=== PATIENT | male | born 1950 | race Hispanic/Latino ===

== ENCOUNTER 2017-07-19 06:14 | Inpatient (IN) | payer MEDICARE, OTHER ==
--- NOTE | 2017-07-19 06:50 | Emergency Department Report ---
ED Chest Pain HPI - General Chief Complaint: Chest Pain Stated Complaint: CHEST PAIN Time Seen by Provider: 07/19/17 06:49 Source: patient, EMS (ems notes not available at time of chart dictation), RN notes reviewed Mode of arrival: Stretcher Limitations: No Limitations - History of Present Illness Initial Comments: This is a 67-year-old male who was previously unknown to this provider, he reports a past medical history of hypertension, reports a family history of heart disease, reports that his primary care doctor is Dr. Chris. The patient is brought to the hospital by EMS with multiple complaints. Patient reports feeling in his usual state of health, up until 1:30 in the morning. He then describes a gradual onset of epigastric pressure, chest pressure, nausea, dizziness, malaise and discomfort. He also describes abdominal cramping, and profuse diarrhea. His pain does not radiate anywhere, it has no exacerbating or relieving factors, no pulmonary embolus or DVT risk factors, no hematemesis or bright red blood per rectum, EMS gave patient aspirin in the field, otherwise patient hasn't had aspirin in the past 7 days, no cocaine use, positive family history of cardiac disease, no stress test within the past 20 years. MD Complaint: chest pain -: Gradual Onset: during rest Pain Location: substernal, epigastric Pain Radiation: none Severity: moderate Quality: aching Consistency: intermittent Improves With: medication-other (patient reports symptoms improved with IV contrast) re: nausea, vomting Aspirin use within the Past 7 Days: (1) Yes - Related Data On Oral Contraceptives: No Home Medications Medication Instructions Recorded Confirmed Last Taken Albuterol Sulfate 1.25 mg IH PRN PRN 07/19/17 07/19/17 Unknown Albuterol Sulfate [Ventolin HFA] 2 puff IH Q4H PRN 07/19/17 07/19/17 Unknown Amlodipine Besylate [Norvasc] 5 mg PO QDAY 07/19/17 07/19/17 Unknown Esomeprazole Magnesium [Nexium] 20 mg PO QDAY 07/19/17 07/19/17 Unknown Ipratropium [Atrovent] 0.5 mg IH Q4HR PRN 07/19/17 07/19/17 Unknown Montelukast [Singulair] 10 mg PO QPM 07/19/17 07/19/17 Unknown Allergies Allergy/AdvReac Type Severity Reaction Status Date / Time levofloxacin [From Levaquin] Allergy Unknown Verified 07/19/17 06:33 Heart Score - HEART Score History: Slightly suspicious EKG: Non-specific Age: > 65 Risk factors: 1-2 risk factors Troponin: < normal limit HEART Score: 4 - Critical Actions Critical Actions: 4-6 pts:12-16.6% risk of adverse cardiac event. Should be admitted ED Review of Systems ROS: Stated complaint: CHEST PAIN Other details as noted in HPI Constitutional: denies: fever Eyes: denies: vision change ENT: denies: epistaxis Respiratory: denies: cough Cardiovascular: chest pain Gastrointestinal: abdominal pain, diarrhea Genitourinary: denies: dysuria Musculoskeletal: arthralgia Skin: denies: lesions Neurological: weakness Psychiatric: anxiety ED Past Medical Hx - Past Medical History Previous Medical History?: Yes Hx Hypertension: Yes - Surgical History Past Surgical History?: Yes Hx Cholecystectomy: Yes - Social History Smoking Status: Never Smoker Substance Use Type: Alcohol - Medications Home Medications: Home Medications Medication Instructions Recorded Confirmed Last Taken Type Albuterol Sulfate 1.25 mg IH PRN PRN 07/19/17 07/19/17 Unknown History Albuterol Sulfate [Ventolin HFA] 2 puff IH Q4H PRN 07/19/17 07/19/17 Unknown History Amlodipine Besylate [Norvasc] 5 mg PO QDAY 07/19/17 07/19/17 Unknown History Esomeprazole Magnesium [Nexium] 20 mg PO QDAY 07/19/17 07/19/17 Unknown History Ipratropium [Atrovent] 0.5 mg IH Q4HR PRN 07/19/17 07/19/17 Unknown History Montelukast [Singulair] 10 mg PO QPM 07/19/17 07/19/17 Unknown History ED Physical Exam - General Limitations: No Limitations General appearance: alert, in no apparent distress - Head Head exam: Present: atraumatic, normocephalic - Eye Eye exam: Present: normal appearance, EOMI. Absent: nystagmus - ENT ENT exam: Present: normal exam, normal orophraynx, mucous membranes moist, normal external ear exam - Neck Neck exam: Present: normal inspection, full ROM - Respiratory Respiratory exam: Present: normal lung sounds bilaterally. Absent: respiratory distress - Cardiovascular Cardiovascular Exam: Present: regular rate, normal rhythm, normal heart sounds. Absent: systolic murmur, diastolic murmur, rubs, gallop - GI/Abdominal GI/Abdominal exam: Present: soft, tenderness, normal bowel sounds, other (there is epigastric tenderness). Absent: distended, guarding, rebound, rigid, pulsatile mass - Rectal Rectal exam: Present: deferred - Extremities Exam Extremities exam: Present: normal inspection, full ROM, normal capillary refill. Absent: pedal edema, joint swelling, calf tenderness - Back Exam Back exam: Present: normal inspection, full ROM. Absent: tenderness, CVA tenderness (R), CVA tenderness (L), muscle spasm, paraspinal tenderness, vertebral tenderness - Neurological Exam Neurological exam: Present: alert, oriented X3, CN II-XII intact, normal gait, other (Extraocular movements intact. Tongue midline. No facial droop. Facial sensation intact to light touch in the V1, V2, V3 distribution bilaterally. 5 and 5 strength in 4 extremities.. Sensation is intact to light touch in 4 extremities.). Absent: motor sensory deficit - Psychiatric Psychiatric exam: Present: anxious - Skin Skin exam: Present: warm, dry, intact, normal color. Absent: rash ED Course Vital Signs 07/19/17 07/19/17 07/19/17 04:30 06:24 06:29 Temperature 97.6 F Pulse Rate 82 73 Respiratory 15 15 18 Rate Blood Pressure 140/86 O2 Sat by Pulse 74 L 97 Oximetry 07/19/17 07/19/17 07/19/17 06:30 06:45 06:53 Temperature Pulse Rate 93 H 85 Respiratory 17 17 18 Rate Blood Pressure 140/86 O2 Sat by Pulse 99 100 99 Oximetry 07/19/17 07/19/17 07/19/17 07:00 07:43 07:45 Temperature Pulse Rate 91 H 108 H Respiratory 16 15 Rate Blood Pressure 155/100 155/100 149/89 O2 Sat by Pulse 99 98 98 Oximetry 07/19/17 07/19/17 07/19/17 08:00 08:04 08:15 Temperature Pulse Rate 106 H 114 H Respiratory 10 L 18 14 Rate Blood Pressure 161/92 171/96 O2 Sat by Pulse 98 98 Oximetry 07/19/17 07/19/17 07/19/17 08:30 08:34 08:45 Temperature Pulse Rate 105 H 100 H Respiratory 18 18 20 Rate Blood Pressure 162/97 175/107 O2 Sat by Pulse 98 Oximetry 07/19/17 07/19/17 07/19/17 09:00 09:15 09:30 Temperature Pulse Rate 91 H 97 H 94 H Respiratory 14 22 16 Rate Blood Pressure 170/103 150/96 153/96 O2 Sat by Pulse 99 98 99 Oximetry 07/19/17 07/19/17 07/19/17 09:45 09:59 10:00 Temperature Pulse Rate 98 H 78 88 Respiratory 13 19 Rate Blood Pressure 164/98 150/96 178/101 O2 Sat by Pulse 98 100 Oximetry 07/19/17 07/19/17 10:01 10:15 Temperature Pulse Rate 78 88 Respiratory 13 Rate Blood Pressure 150/96 180/99 O2 Sat by Pulse 99 Oximetry KARTHIK score - Karthik Score Age > 65: (1) Yes Aspirin use within the Past 7 Days: (1) Yes 3 or more CAD Risk Factors: (0) No 2 or more Angina events in past 24 hrs: (0) No Known CAD with more than 50% Stenosis: (0) No Elevated Cardiac Markers: (0) No ST Deviation Greater than 0.5mm: (0) No KARTHIK Score: 2 ED Medical Decision Making - Lab Data Result diagrams: 07/19/17 08:50 07/19/17 08:50 Vital Signs 07/19/17 07/19/17 07/19/17 04:30 06:24 06:29 Temperature 97.6 F Pulse Rate 82 73 Respiratory 15 15 18 Rate Blood Pressure 140/86 O2 Sat by Pulse 74 L 97 Oximetry 07/19/17 07/19/17 07/19/17 06:30 06:45 06:53 Temperature Pulse Rate 93 H 85 Respiratory 17 17 18 Rate Blood Pressure 140/86 O2 Sat by Pulse 99 100 99 Oximetry 07/19/17 07/19/17 07/19/17 07:00 07:43 07:45 Temperature Pulse Rate 91 H 108 H Respiratory 16 15 Rate Blood Pressure 155/100 155/100 149/89 O2 Sat by Pulse 99 98 98 Oximetry 07/19/17 07/19/17 08:00 08:04 Temperature Pulse Rate 106 H Respiratory 10 L 18 Rate Blood Pressure 161/92 O2 Sat by Pulse 98 Oximetry Lab Results 07/19/17 07/19/17 Range/Units 06:40 06:40 WBC 17.0 H (4.5-11.0) K/mm3 RBC 5.14 H (3.65-5.03) M/mm3 Hgb 17.6 H (11.8-15.2) gm/dl Hct 50.1 H (35.5-45.6) % MCV 98 H (84-94) fl MCH 34 H (28-32) pg MCHC 35 H (32-34) % RDW 12.7 L (13.2-15.2) % Plt Count 255 (140-440) K/mm3 Seg Neutrophils % Manufacturing Development Engineer Sodium 135 L (137-145) mmol/L Potassium 4.6 (3.6-5.0) mmol/L Chloride 96.1 L (98-107) mmol/L Carbon Dioxide 20 L (22-30) mmol/L Anion Gap 24 mmol/L BUN 20 (9-20) mg/dL Creatinine 0.8 (0.8-1.5) mg/dL Estimated GFR > 60 ml/min BUN/Creatinine Ratio 25 % Glucose 190 H (75-100) mg/dL Calcium 9.7 (8.4-10.2) mg/dL Troponin T < 0.010 (0.00-0.029) ng/mL - EKG Data -: EKG Interpreted by Me EKG shows normal: sinus rhythm Rate: normal - EKG Data When compared to previous EKG there are: previous EKG unavailable 07/19/17 08:46 Normal sinus, 81 bpm, normal axis, motion artifact, QTC prolonged, Q waves noted in the inferior leads, abnormal EKG, not morphologically consistent with ST elevation myocardial infarction - Radiology Data Radiology results: report reviewed, image reviewed interpreted by me: X-ray the chest, and interpreted by myself and radiology: No acute disease [facility] [address] [place] [address] Cat Scan Report Signed Patient: RUBIO AVALOS MR#: [id number] : 1950 Acct:[id number] Age/Sex: 67 / M ADM Date: 07/19/17 Loc: ED Attending Dr: Ordering Physician: SLADE HUGHES MD Date of Service: 07/19/17 Procedure(s): CT abdomen pelvis w con Accession Number(s): [id number] cc: SLADE HUGHES MD FINAL REPORT PROCEDURE: CT ABDOMEN PELVIS W CON TECHNIQUE: Computerized axial tomography of the abdomen and pelvis was performed after the IV injection of iodinated nonionic contrast. HISTORY: abd pain COMPARISON: No prior studies are available for comparison. FINDINGS: Visualized lower thorax: No significant abnormality. Liver: Normal size and attenuation. Spleen: Normal size and attenuation. Gallbladder and biliary system: There has been a cholecystectomy.. Pancreas: Normal. Adrenals: Normal. Kidneys: There is a 2 centimeters cyst in the midpole of the right kidney. There are no kidney stones. There is no hydronephrosis.. GI tract: The stomach is distended with fluid. There are slightly distended loops of small bowel. There is no specific evidence of obstruction or enteritis. There are diverticula of the colon. There is no diverticulitis or colitis. The appendix is not identified.. Lymph nodes and mesentery: Normal. Vasculature: Normal. Bladder: Normal. Reproductive organs: Normal. Peritoneum: There is no ascites, free air, abscess or adenopathy.. Musculoskeletal structures: No significant abnormality. Other: There is a left inguinal hernia containing fat only.. IMPRESSION: There has been a cholecystectomy.. There is a 2 centimeters cyst in the midpole of the right kidney. There are no kidney stones. There is no hydronephrosis.. The stomach is distended with fluid. There are slightly distended loops of small bowel. There is no specific evidence of obstruction or enteritis. There are diverticula of the colon. There is no diverticulitis or colitis. The appendix is not identified.. There is no ascites, free air, abscess or adenopathy.. Transcribed By: CO Dictated By: BRIGITTE CURTIS MD Electronically Authenticated By: BRIGITTE CURTIS MD Signed Date/Time: 07/19/17 3232 - Medical Decision Making Differential diagnosis, including but not limited to: GERD, gastritis, reflux, hiatal hernia, ileus, acute cardiac syndrome, pneumonia, costochondritis Assessment and plan: 67-year-old male with a few cardiac risk factors, elevated heart score, with atypical chest pain, abnormal EKG, and nonspecific abdominal symptoms. [place] improved after Synthroid therapy and IV contrast, EKG abnormal, CT scan of the abdomen and pelvis did not demonstrate any condition that would require emergent surgical or GI consultation, patient will be admitted for acute coronary syndrome risk stratification given a aforementioned findings, case presented to the Hospital physician, Dr. Robledo, who accepted the patient to the medical service. No pulmonary most or DVT risk factors, low risk by well's criteria. Initial O2 sat documented was 74%, this is most likely an error, because for hours afterwards, patient's had no episodes of hypoxia. Critical care attestation.: If time is entered above; I have spent that time in minutes in the direct care of this critically ill patient, excluding procedure time. ED Disposition Clinical Impression: Chest pain, Epigastric abdominal pain Disposition: OP ADMIT IP TO THIS HOSP Is pt being admited?: Yes Does the pt Need Aspirin: No Condition: Stable
[2017-07-19 06:57] LABS: Hematocrit 50.1 % (35.5-45.6); Hemoglobin 17.6 gm/dl (11.8-15.2); Mean Corpuscular HGB Conc 35 % (32-34); Mean Corpuscular Hemoglobin 34 pg (28-32); Mean Corpuscular Volume 98 fl (84-94); Platelet Count 255 K/mm3 (140-440); Red Blood Count 5.14 M/mm3 (3.65-5.03); Red Cell Distribution Width 12.7 % (13.2-15.2)
[2017-07-19] MEDS ORDERED: SUBLIMAZE IV ONE (06:57)
[2017-07-19] MEDS ORDERED: BENTYL PO ONE (06:57)
[2017-07-19] MEDS ORDERED: NITROSTAT SL PRN (06:57)
[2017-07-19] MEDS ORDERED: PEPCID IV ONE (06:57)
[2017-07-19] MEDS ORDERED: ZOFRAN IV ONE (06:57)
[2017-07-19] MEDS ORDERED: NACL 0.9% 500 ML 500 ML IV ONE (06:58)
[2017-07-19] MEDS ORDERED: NACL ONE (07:04)
[2017-07-19 07:21] LABS: Anion Gap 24 mmol/L; BUN/Creatinine Ratio 25; Blood Urea Nitrogen 20 mg/dL (9-20); Calcium 9.7 mg/dL (8.4-10.2); Carbon Dioxide 20 mmol/L (22-30); Chloride 96.1 mmol/L (98-107); Glucose 190 mg/dL (75-100); Potassium 4.6 mmol/L (3.6-5.0); Sodium 135 mmol/L (137-145)
--- NOTE | 2017-07-19 07:52 | Cat Scan Report ---
FINAL REPORT PROCEDURE: CT ABDOMEN PELVIS W CON TECHNIQUE: Computerized axial tomography of the abdomen and pelvis was performed after the IV injection of iodinated nonionic contrast. HISTORY: abd pain COMPARISON: No prior studies are available for comparison. FINDINGS: Visualized lower thorax: No significant abnormality. Liver: Normal size and attenuation. Spleen: Normal size and attenuation. Gallbladder and biliary system: There has been a cholecystectomy.. Pancreas: Normal. Adrenals: Normal. Kidneys: There is a 2 centimeters cyst in the midpole of the right kidney. There are no kidney stones. There is no hydronephrosis.. GI tract: The stomach is distended with fluid. There are slightly distended loops of small bowel. There is no specific evidence of obstruction or enteritis. There are diverticula of the colon. There is no diverticulitis or colitis. The appendix is not identified.. Lymph nodes and mesentery: Normal. Vasculature: Normal. Bladder: Normal. Reproductive organs: Normal. Peritoneum: There is no ascites, free air, abscess or adenopathy.. Musculoskeletal structures: No significant abnormality. Other: There is a left inguinal hernia containing fat only.. IMPRESSION: There has been a cholecystectomy.. There is a 2 centimeters cyst in the midpole of the right kidney. There are no kidney stones. There is no hydronephrosis.. The stomach is distended with fluid. There are slightly distended loops of small bowel. There is no specific evidence of obstruction or enteritis. There are diverticula of the colon. There is no diverticulitis or colitis. The appendix is not identified.. There is no ascites, free air, abscess or adenopathy..
[2017-07-19] MEDS ORDERED: MORPHINE IV PRN (08:31)
[2017-07-19] MEDS ORDERED: NACL 0.9% 1000 ML IV ONE (08:31)
--- NOTE | 2017-07-19 08:42 | XRay Report ---
FINAL REPORT EXAM: XR CHEST ROUTINE 2V HISTORY: cp TECHNIQUE: PA and lateral chest radiographs PRIORS: CT abdomen and pelvis of the same date FINDINGS: No mediastinal shift. Cardiac silhouette is not enlarged. No pneumothorax, effusion, or focal pulmonary opacity. No acute skeletal finding. IMPRESSION: No focal pulmonary opacity.
[2017-07-19 09:19] LABS: Anion Gap 18 mmol/L; BUN/Creatinine Ratio 26; Blood Urea Nitrogen 21 mg/dL (9-20); Carbon Dioxide 25 mmol/L (22-30); Chloride 97.6 mmol/L (98-107); Glucose 129 mg/dL (75-100); Sodium 137 mmol/L (137-145)
[2017-07-19] MEDS ORDERED: COREG ONE (09:29)
[2017-07-19 09:31] LABS: Hemoglobin 17.3 gm/dl (11.8-15.2); Mean Corpuscular HGB Conc 35 % (32-34); Mean Corpuscular Hemoglobin 34 pg (28-32); Mean Corpuscular Volume 98 fl (84-94); Platelet Count 255 K/mm3 (140-440); Red Blood Count 5.09 M/mm3 (3.65-5.03); Red Cell Distribution Width 12.7 % (13.2-15.2); White Blood Count 16.8 K/mm3 (4.5-11.0)
--- NOTE | 2017-07-19 09:45 | Consultation ---
History of Present Illness Consult date: 07/19/17 Consult reason: chest pain History of present illness: 67 year old male presenting with chest tightness that started at 130 am this morning following anepisode of diarrhea, nausea, dizziness and flushing feeling. Patient used to follow with Dr Logan in the past and had 2 stress tests and a heart cath in the last 15-16 years that he describes as being normal. PMHX is pertinent for hypertension. Patient denies smoking or DM. Past History Past Medical History: hypertension, other (hiatal hernia) Past Surgical History: cholecystectomy Social history: no significant social history Family history: hypertension Medications and Allergies Allergies Allergy/AdvReac Type Severity Reaction Status Date / Time levofloxacin [From Levaquin] Allergy Unknown Verified 07/19/17 06:33 Active Meds: Active Medications Albuterol (Proventil) 2.5 mg IH Q4HRT PRN PRN Reason: Shortness Of Breath Albuterol/Ipratropium (Duoneb *Not For Prn Use*) 1 ampul IH QIDRT SANTINO Amlodipine Besylate (Norvasc) 2.5 mg PO ONCE ONE Stop: 07/19/17 10:01 Atorvastatin Calcium (Lipitor) 40 mg PO QHS SANTINO Carvedilol (Coreg) 3.125 mg PO ONCE ONE Stop: 07/19/17 10:01 Metronidazole (Flagyl) 500 mg PO Q8HR SANTINO Morphine Sulfate (Morphine) 2 mg IV Q5MIN PRN PRN Reason: Chest Pain Nitroglycerin (Nitrostat) 0.4 mg SL .Q5MIN PRN PRN Reason: Chest Pain Sodium Chloride (Sodium Chloride Flush Syringe 10 Ml) 10 ml IV PRN PRN PRN Reason: LINE FLUSH Review of Systems All systems: negative Physical Examination Vital Signs Resp Pulse Ox 15 74 L 07/19/17 04:30 07/19/17 04:30 General appearance: no acute distress HEENT: Positive: PERRL Neck: Positive: neck supple Cardiac: Positive: Reg Rate and Rhythm Lungs: Positive: Normal Exam Neuro: Positive: Grossly Intact Abdomen: Positive: Soft Extremities: Present: normal Results 07/19/17 06:40 07/19/17 08:50 Lipids 07/19/17 Range/Units 08:50 Cholesterol 196 (50-199) mg/dL HDL Cholesterol 51 (40-59) mg/dL Cholesterol/HDL Ratio 3.84 % CBC 07/19/17 Range/Units 06:40 WBC 17.0 H (4.5-11.0) K/mm3 RBC 5.14 H (3.65-5.03) M/mm3 Hgb 17.6 H (11.8-15.2) gm/dl Hct 50.1 H (35.5-45.6) % Plt Count 255 (140-440) K/mm3 Comprehensive Metabolic Panel 07/19/17 07/19/17 Range/Units 06:40 08:50 Sodium 135 L 137 (137-145) mmol/L Potassium 4.6 4.0 (3.6-5.0) mmol/L Chloride 96.1 L 97.6 L (98-107) mmol/L Carbon Dioxide 20 L 25 (22-30) mmol/L BUN 20 21 H (9-20) mg/dL Creatinine 0.8 0.8 (0.8-1.5) mg/dL Glucose 190 H 129 H (75-100) mg/dL Calcium 9.7 9.0 (8.4-10.2) mg/dL - EKG Interpretation EKG: sinus rhythm EKG interpretations - Telemetry EKG Rhythm: Sinus Rhythm Assessment and Plan Chest tightness/epigastric pain History of hiatal hernia Two sets of troponin are negative so far ECG on admission is showing no ischemic changes CT abdomen is showing distended loop of bowels and stomach - no obstruction Leukocytosis Polycythemia Elevated lactic acid History of asthma on inhalers and monteleukast at home Systemic Hypertension on amlodipine Recommendations: Repeat another 12 lead ECG showing no ischemic changes Start asa 325 mg po daily IV hydration Agree with empiric antibiotic coverage Echocardiogram Follow troponin, lactic acid and WBC trends Lexiscan prior to discharge (Symptoms so far are not typical for angina)
[2017-07-19] MEDS ORDERED: COREG PO ONE (10:00)
[2017-07-19] MEDS: FLAGYL PO SCH ×2 (10:00→18:22)
[2017-07-19] MEDS ORDERED: PROVENTIL IH PRN (10:00)
[2017-07-19] MEDS ORDERED: SODIUM CHLORIDE FLUSH SYRINGE 10 ML IV PRN (10:00)
[2017-07-19] MEDS ORDERED: NORVASC PO ONE (10:00)
[2017-07-19 11:07] LABS: Basophils % (Manual) 0 % (0.0-1.8); Blastocytes % (Manual) 0 %; Eosinophils % (Manual) 0 % (0.0-4.3)
[2017-07-19 11:08] LABS: Anisocytosis 1+; Diff Status Complete; Platelet Estimate Consistent w Auto
[2017-07-19] MEDS: ECOTRIN PO SCH (11:11)
[2017-07-19 11:40] LABS: Basophils % (Manual) 0 % (0.0-1.8); Blastocytes % (Manual) 0 %; Eosinophils % (Manual) 0 % (0.0-4.3)
[2017-07-19 11:41] LABS: Anisocytosis 1+; Diff Status Complete; Platelet Estimate Consistent w Auto
[2017-07-19] MEDS: DUONEB *Not for PRN Use IH SCH ×2 (12:10→16:37)
--- NOTE | 2017-07-19 13:08 | History and Physical Report ---
<MAGO MCNAMARA - Last Filed: 07/19/17 13:40> History of Present Illness Date of examination: 07/19/17 Date of admission: 07/19/17 09:40 Patient is a 67 year old male with history of Hypertension, Asthma and S/P Cholecystectomy who presents to the ER with complaints of Nausea, diarrhea and subsequent chest pain/pressure. Patient stated that symptoms began about 1 am, a few hours after having left overs for dinner. Patient describe that midsternal chest pressure began after having a few episodes of diarrhea. Patient stated the stools was watery in consistency with no blood or any other abnormalities. Patient stated that prior to last night, condition was benign and no acute illnesses. Past History Past Medical History: hypertension, other (hiatal hernia) Past Surgical History: cholecystectomy Social history: no significant social history, Family history: cancer (Mom had Colon Ca), hypertension, other (Dad pass with [place] ) Medications and Allergies Allergies Allergy/AdvReac Type Severity Reaction Status Date / Time levofloxacin [From Levaquin] Allergy Unknown Verified 07/19/17 06:33 Home Medications Medication Instructions Recorded Confirmed Last Taken Type Albuterol Sulfate 1.25 mg IH PRN PRN 07/19/17 07/19/17 Unknown History Albuterol Sulfate [Ventolin HFA] 2 puff IH Q4H PRN 07/19/17 07/19/17 Unknown History Amlodipine Besylate [Norvasc] 5 mg PO QDAY 07/19/17 07/19/17 Unknown History Esomeprazole Magnesium [Nexium] 20 mg PO QDAY 07/19/17 07/19/17 Unknown History Ipratropium [Atrovent] 0.5 mg IH Q4HR PRN 07/19/17 07/19/17 Unknown History Montelukast [Singulair] 10 mg PO QPM 07/19/17 07/19/17 Unknown History Active Meds: Active Medications Albuterol (Proventil) 2.5 mg IH Q4HRT PRN PRN Reason: Shortness Of Breath Albuterol/Ipratropium (Duoneb *Not For Prn Use*) 1 ampul IH QIDRT ON LICENSE OF [facility] Last Admin: 07/19/17 12:10 Dose: 1 ampul Aspirin (Ecotrin) 325 mg PO QDAY ON LICENSE OF [facility] Last Admin: 07/19/17 11:11 Dose: Not Given Atorvastatin Calcium (Lipitor) 40 mg PO QHS [facility] Metronidazole (Flagyl) 500 mg PO Q8H ON LICENSE OF [facility] Last Admin: 07/19/17 10:00 Dose: 500 mg Morphine Sulfate (Morphine) 2 mg IV Q5MIN PRN PRN Reason: Chest Pain Nitroglycerin (Nitrostat) 0.4 mg SL .Q5MIN PRN PRN Reason: Chest Pain Sodium Chloride (Sodium Chloride Flush Syringe 10 Ml) 10 ml IV PRN PRN PRN Reason: LINE FLUSH Review of Systems All systems: negative Cardiovascular: high blood pressure (Current B;ood Pressure 171/86), no chest pain (No Chest pain or pressure at present time), no shortness of breath Respiratory: no shortness of breath, no dyspnea on exertion Gastrointestinal: nausea (Currently no nausea, S/P Zofran ), diarrhea ( Currently no episode of diarrhea), no abdominal pain, no constipation, no coffee ground emesis, no melena, no heartburn Genitourinary Male: no hematuria, no incontinence, no erectile dysfunction, no urinary retention, no kidney stones Rectal: no pain, no incontinence, no bleeding, no itching, no hemorrhoids Musculoskeletal: no low back pain, no gait dysfunction Integumentary: no rash, no redness, no sores, no wounds, no blisters Neurological: no head injury, no paralysis, no numbness, no tingling, no seizures, no headaches, no migraines Psychiatric: no anxiety, no sleep disturbances, no insomnia, no depression Endocrine: no excessive thirst, no polydipsia, no polyuria, no nocturia Hematologic/Lymphatic: no easy bruising, no easy bleeding Allergic/Immunologic: no urticaria, no allergic rhinitis, no wheezing Exam - Constitutional Vitals: Temp Pulse Resp BP Pulse Ox 97.6 F 113 H 20 180/99 99 07/19/17 06:29 07/19/17 12:15 07/19/17 12:15 07/19/17 10:15 07/19/17 10:15 General appearance: Present: no acute distress, well-nourished - EENT Eyes: Present: PERRL ENT: hearing intact, clear oral mucosa, dentition normal - Neck Neck: Present: supple, normal ROM. Absent: rigidity, enlarged thyroid, masses or JVD, cervical LAD, carotid bruits - Respiratory Respiratory effort: normal Respiratory: bilateral: CTA (No shortness of breath, Rhonchi or rales) - Cardiovascular Rhythm: regular Heart Sounds: Present: S1 & S2. Absent: gallop, systolic murmur, diastolic murmur - Extremities Extremities: no ischemia, pulses intact Peripheral Pulses: within normal limits - Abdominal General gastrointestinal: Present: soft, non-tender, non-distended, other ( Hyperactive bowel sounds) - Integumentary Integumentary: Present: warm, dry, normal turgor. Absent: erythema, jaundice, rash, clammy, decreased turgor - Musculoskeletal Musculoskeletal: strength equal bilaterally - Psychiatric Psychiatric: appropriate mood/affect Results - Labs CBC & Chem 7: 07/19/17 08:50 07/19/17 08:50 Labs: Laboratory Last Values WBC 16.8 K/mm3 (4.5-11.0) H 07/19/17 08:50 RBC 5.09 M/mm3 (3.65-5.03) H 07/19/17 08:50 Hgb 17.3 gm/dl (11.8-15.2) H 07/19/17 08:50 Hct 50.0 % (35.5-45.6) H 07/19/17 08:50 MCV 98 fl (84-94) H 07/19/17 08:50 MCH 34 pg (28-32) H 07/19/17 08:50 MCHC 35 % (32-34) H 07/19/17 08:50 RDW 12.7 % (13.2-15.2) L 07/19/17 08:50 Plt Count 255 K/mm3 (140-440) 07/19/17 08:50 Add Manual Diff Complete 07/19/17 08:50 Total Counted 100 07/19/17 08:50 Seg Neutrophils % [place] Cutter Helper 07/19/17 08:50 Seg Neuts % (Manual) 93.0 % (40.0-70.0) H 07/19/17 08:50 Band Neutrophils % 0 % 07/19/17 08:50 Lymphocytes % (Manual) 3.0 % (13.4-35.0) L 07/19/17 08:50 Reactive Lymphs % (Man) 0 % 07/19/17 08:50 Monocytes % (Manual) 4.0 % (0.0-7.3) 07/19/17 08:50 Eosinophils % (Manual) 0 % (0.0-4.3) 07/19/17 08:50 Basophils % (Manual) 0 % (0.0-1.8) 07/19/17 08:50 Metamyelocytes % 0 % 07/19/17 08:50 Myelocytes % 0 % 07/19/17 08:50 Promyelocytes % 0 % 07/19/17 08:50 Blast Cells % 0 % 07/19/17 08:50 Nucleated RBC % Not Reportable 07/19/17 08:50 Seg Neutrophils # Man 15.6 K/mm3 (1.8-7.7) H 07/19/17 08:50 Band Neutrophils # 0.0 K/mm3 07/19/17 08:50 Lymphocytes # (Manual) 0.5 K/mm3 (1.2-5.4) L 07/19/17 08:50 Abs React Lymphs (Man) 0.0 K/mm3 07/19/17 08:50 Monocytes # (Manual) 0.7 K/mm3 (0.0-0.8) 07/19/17 08:50 Eosinophils # (Manual) 0.0 K/mm3 (0.0-0.4) 07/19/17 08:50 Basophils # (Manual) 0.0 K/mm3 (0.0-0.1) 07/19/17 08:50 Metamyelocytes # 0.0 K/mm3 07/19/17 08:50 Myelocytes # 0.0 K/mm3 07/19/17 08:50 Promyelocytes # 0.0 K/mm3 07/19/17 08:50 Blast Cells # 0.0 K/mm3 07/19/17 08:50 WBC Morphology Not Reportable 07/19/17 08:50 Hypersegmented Neuts Not Reportable 07/19/17 08:50 Hyposegmented Neuts Not Reportable 07/19/17 08:50 Hypogranular Neuts Not Reportable 07/19/17 08:50 Smudge Cells Not Reportable 07/19/17 08:50 Toxic Granulation Not Reportable 07/19/17 08:50 Toxic Vacuolation Not Reportable 07/19/17 08:50 Dohle Bodies Not Reportable 07/19/17 08:50 Pelger-Huet Anomaly Not Reportable 07/19/17 08:50 Radu Rods Not Reportable 07/19/17 08:50 Platelet Estimate Consistent w auto 07/19/17 08:50 Clumped Platelets Not Reportable 07/19/17 08:50 Plt Clumps, EDTA Not Reportable 07/19/17 08:50 Large Platelets Not Reportable 07/19/17 08:50 Giant Platelets Not Reportable 07/19/17 08:50 Platelet Satelliting Not Reportable 07/19/17 08:50 Plt Morphology Comment Not Reportable 07/19/17 08:50 RBC Morphology Not Reportable 07/19/17 08:50 Dimorphic RBCs Not Reportable 07/19/17 08:50 Polychromasia Not Reportable 07/19/17 08:50 Hypochromasia Not Reportable 07/19/17 08:50 Poikilocytosis Not Reportable 07/19/17 08:50 Anisocytosis 1+ 07/19/17 08:50 Microcytosis Not Reportable 07/19/17 08:50 Macrocytosis Not Reportable 07/19/17 08:50 Spherocytes Not Reportable 07/19/17 08:50 Pappenheimer Bodies Not Reportable 07/19/17 08:50 Sickle Cells Not Reportable 07/19/17 08:50 Target Cells Not Reportable 07/19/17 08:50 Tear Drop Cells Not Reportable 07/19/17 08:50 Ovalocytes Not Reportable 07/19/17 08:50 Helmet Cells Not Reportable 07/19/17 08:50 [place] Bodies Not Reportable 07/19/17 08:50 [place] Rings Not Reportable 07/19/17 08:50 Xavier Cells Not Reportable 07/19/17 08:50 Bite Cells Not Reportable 07/19/17 08:50 Crenated Cell Not Reportable 07/19/17 08:50 Elliptocytes Not Reportable 07/19/17 08:50 Acanthocytes (Spur) Not Reportable 07/19/17 08:50 Rouleaux Not Reportable 07/19/17 08:50 Hemoglobin C Crystals Not Reportable 07/19/17 08:50 Schistocytes Not Reportable 07/19/17 08:50 Malaria parasites Not Reportable 07/19/17 08:50 Kushal Bodies Not Reportable 07/19/17 08:50 Hem Pathologist Commnt No 07/19/17 08:50 Sodium 137 mmol/L (137-145) 07/19/17 08:50 Potassium 4.0 mmol/L (3.6-5.0) 07/19/17 08:50 Chloride 97.6 mmol/L (98-107) L 07/19/17 08:50 Carbon Dioxide 25 mmol/L (22-30) 07/19/17 08:50 Anion Gap 18 mmol/L 07/19/17 08:50 BUN 21 mg/dL (9-20) H 07/19/17 08:50 Creatinine 0.8 mg/dL (0.8-1.5) 07/19/17 08:50 Estimated GFR > 60 ml/min 07/19/17 08:50 BUN/Creatinine Ratio 26 % 07/19/17 08:50 Glucose 129 mg/dL (75-100) H 07/19/17 08:50 Lactic Acid 2.90 mmol/L (0.7-2.0) H* 07/19/17 08:50 Calcium 9.0 mg/dL (8.4-10.2) 07/19/17 08:50 Troponin T < 0.010 ng/mL (0.00-0.029) 07/19/17 08:50 Triglycerides 208 mg/dL (2-149) H 07/19/17 08:50 Cholesterol 196 mg/dL (50-199) 07/19/17 08:50 LDL Cholesterol Direct 132 mg/dL (50-130) H 07/19/17 08:50 HDL Cholesterol 51 mg/dL (40-59) 07/19/17 08:50 Cholesterol/HDL Ratio 3.84 % 07/19/17 08:50 Assessment and Plan Assessment and plan: Assessment: Patient is a 67 year old male with history of Hypertension, Asthma and S/P Cholecystectomy who presents to the ER with complaints of Nausea, diarrhea and subsequent chest pain/pressure. Patient stated that symptoms began about 1 am, a few hours after having left overs for dinner. Patient describe that midsternal chest pressure began after having a few episodes of diarrhea. Patient stated the stools was watery in consistency with no blood or any other abnormalities. Plan: Chest Pain/Pressure Plan Lexiscan Prior to discharge Echocardiogram medicare sales representative Troponin Cardiology Consulted Diarrhea Stool Culture Start Flagyl after obtaining stool sample Contact Isolation for possible C-Diff Sepsis IVF NS @ 100ml/hr Continue to follow Lactic Acids Asthma Continue home medication of motelukast Duoneb PRN Patient has been seen and evaluated in conjunction with Dr. Robledo who agree with treatment regimen and current plan of care. Advance Directives: No (Discussed with and spouse) VTE prophylaxis?: Not ordered Contraindication Mechanical VTE Prophylaxis: Treatment Not Indicated Plan of care discussed with patient/family: Yes <STEFANIE ROBLEDO - Last Filed: 07/19/17 15:16> History of Present Illness Date of admission: 07/19/17 09:40 Medications and Allergies Active Meds: Active Medications Albuterol (Proventil) 2.5 mg IH Q4HRT PRN PRN Reason: Shortness Of Breath Albuterol/Ipratropium (Duoneb *Not For Prn Use*) 1 ampul IH QIDRT ON LICENSE OF [facility] Last Admin: 07/19/17 12:10 Dose: 1 ampul Aspirin (Ecotrin) 325 mg PO QDAY ON LICENSE OF [facility] Last Admin: 07/19/17 11:11 Dose: Not Given Atorvastatin Calcium (Lipitor) 40 mg PO QHS ON LICENSE OF [facility] Sodium Chloride (Nacl 0.9% 1000 Ml) 1,000 mls @ 100 mls/hr IV DIRECT ON LICENSE OF [facility] Metronidazole (Flagyl) 500 mg PO Q8H ON LICENSE OF [facility] Last Admin: 07/19/17 10:00 Dose: 500 mg Morphine Sulfate (Morphine) 2 mg IV Q5MIN PRN PRN Reason: Chest Pain Nitroglycerin (Nitrostat) 0.4 mg SL .Q5MIN PRN PRN Reason: Chest Pain Ondansetron HCl (Zofran) 4 mg IV Q4H PRN PRN Reason: Nausea And Vomiting Last Admin: 07/19/17 13:49 Dose: 4 mg Sodium Chloride (Sodium Chloride Flush Syringe 10 Ml) 10 ml IV PRN PRN PRN Reason: LINE FLUSH Exam - Constitutional Vitals: Temp Pulse Resp BP Pulse Ox 97.6 F 113 H 20 180/99 99 07/19/17 06:29 07/19/17 12:15 07/19/17 12:15 07/19/17 10:15 07/19/17 10:15 General appearance: Present: no acute distress, well-nourished - EENT Eyes: Present: PERRL ENT: hearing intact, clear oral mucosa - Neck Neck: Present: supple, normal ROM - Respiratory Respiratory effort: normal Respiratory: bilateral: CTA - Cardiovascular Rhythm: regular Heart Sounds: Present: S1 & S2 - Extremities Extremities: no ischemia, pulses intact, pulses symmetrical, No edema Peripheral Pulses: within normal limits - Abdominal General gastrointestinal: Present: soft, non-tender, non-distended, other ( Hyperactive bowel sounds, hernia) Male genitourinary: Present: deferred - Rectal Rectal Exam: deferred - Integumentary Integumentary: Present: warm, dry - Musculoskeletal Musculoskeletal: strength equal bilaterally - Psychiatric Psychiatric: appropriate mood/affect, intact judgment & insight, cooperative - Neurologic Neurologic: CNII-XII intact, moves all extremities, gait normal - Allied Health Allied health notes reviewed: nursing Results - Labs CBC & Chem 7: 07/19/17 08:50 07/19/17 08:50 Labs: Laboratory Last Values WBC 16.8 K/mm3 (4.5-11.0) H 07/19/17 08:50 RBC 5.09 M/mm3 (3.65-5.03) H 07/19/17 08:50 Hgb 17.3 gm/dl (11.8-15.2) H 07/19/17 08:50 Hct 50.0 % (35.5-45.6) H 07/19/17 08:50 MCV 98 fl (84-94) H 07/19/17 08:50 MCH 34 pg (28-32) H 07/19/17 08:50 MCHC 35 % (32-34) H 07/19/17 08:50 RDW 12.7 % (13.2-15.2) L 07/19/17 08:50 Plt Count 255 K/mm3 (140-440) 07/19/17 08:50 Add Manual Diff Complete 07/19/17 08:50 Total Counted 100 07/19/17 08:50 Seg Neutrophils % [place] Cutter Helper 07/19/17 08:50 Seg Neuts % (Manual) 93.0 % (40.0-70.0) H 07/19/17 08:50 Band Neutrophils % 0 % 07/19/17 08:50 Lymphocytes % (Manual) 3.0 % (13.4-35.0) L 07/19/17 08:50 Reactive Lymphs % (Man) 0 % 07/19/17 08:50 Monocytes % (Manual) 4.0 % (0.0-7.3) 07/19/17 08:50 Eosinophils % (Manual) 0 % (0.0-4.3) 07/19/17 08:50 Basophils % (Manual) 0 % (0.0-1.8) 07/19/17 08:50 Metamyelocytes % 0 % 07/19/17 08:50 Myelocytes % 0 % 07/19/17 08:50 Promyelocytes % 0 % 07/19/17 08:50 Blast Cells % 0 % 07/19/17 08:50 Nucleated RBC % Not Reportable 07/19/17 08:50 Seg Neutrophils # Man 15.6 K/mm3 (1.8-7.7) H 07/19/17 08:50 Band Neutrophils # 0.0 K/mm3 07/19/17 08:50 Lymphocytes # (Manual) 0.5 K/mm3 (1.2-5.4) L 07/19/17 08:50 Abs React Lymphs (Man) 0.0 K/mm3 07/19/17 08:50 Monocytes # (Manual) 0.7 K/mm3 (0.0-0.8) 07/19/17 08:50 Eosinophils # (Manual) 0.0 K/mm3 (0.0-0.4) 07/19/17 08:50 Basophils # (Manual) 0.0 K/mm3 (0.0-0.1) 07/19/17 08:50 Metamyelocytes # 0.0 K/mm3 07/19/17 08:50 Myelocytes # 0.0 K/mm3 07/19/17 08:50 Promyelocytes # 0.0 K/mm3 07/19/17 08:50 Blast Cells # 0.0 K/mm3 07/19/17 08:50 WBC Morphology Not Reportable 07/19/17 08:50 Hypersegmented Neuts Not Reportable 07/19/17 08:50 Hyposegmented Neuts Not Reportable 07/19/17 08:50 Hypogranular Neuts Not Reportable 07/19/17 08:50 Smudge Cells Not Reportable 07/19/17 08:50 Toxic Granulation Not Reportable 07/19/17 08:50 Toxic Vacuolation Not Reportable 07/19/17 08:50 Dohle Bodies Not Reportable 07/19/17 08:50 Pelger-Huet Anomaly Not Reportable 07/19/17 08:50 Radu Rods Not Reportable 07/19/17 08:50 Platelet Estimate Consistent w auto 07/19/17 08:50 Clumped Platelets Not Reportable 07/19/17 08:50 Plt Clumps, EDTA Not Reportable 07/19/17 08:50 Large Platelets Not Reportable 07/19/17 08:50 Giant Platelets Not Reportable 07/19/17 08:50 Platelet Satelliting Not Reportable 07/19/17 08:50 Plt Morphology Comment Not Reportable 07/19/17 08:50 RBC Morphology Not Reportable 07/19/17 08:50 Dimorphic RBCs Not Reportable 07/19/17 08:50 Polychromasia Not Reportable 07/19/17 08:50 Hypochromasia Not Reportable 07/19/17 08:50 Poikilocytosis Not Reportable 07/19/17 08:50 Anisocytosis 1+ 07/19/17 08:50 Microcytosis Not Reportable 07/19/17 08:50 Macrocytosis Not Reportable 07/19/17 08:50 Spherocytes Not Reportable 07/19/17 08:50 Pappenheimer Bodies Not Reportable 07/19/17 08:50 Sickle Cells Not Reportable 07/19/17 08:50 Target Cells Not Reportable 07/19/17 08:50 Tear Drop Cells Not Reportable 07/19/17 08:50 Ovalocytes Not Reportable 07/19/17 08:50 Helmet Cells Not Reportable 07/19/17 08:50 [place] Bodies Not Reportable 07/19/17 08:50 [place] Rings Not Reportable 07/19/17 08:50 [place] Cells Not Reportable 07/19/17 08:50 Bite Cells Not Reportable 07/19/17 08:50 Crenated Cell Not Reportable 07/19/17 08:50 Elliptocytes Not Reportable 07/19/17 08:50 Acanthocytes (Spur) Not Reportable 07/19/17 08:50 Rouleaux Not Reportable 07/19/17 08:50 Hemoglobin C Crystals Not Reportable 07/19/17 08:50 Schistocytes Not Reportable 07/19/17 08:50 Malaria parasites Not Reportable 07/19/17 08:50 Kushal Bodies Not Reportable 07/19/17 08:50 Hem Pathologist Commnt No 07/19/17 08:50 Sodium 137 mmol/L (137-145) 07/19/17 08:50 Potassium 4.0 mmol/L (3.6-5.0) 07/19/17 08:50 Chloride 97.6 mmol/L (98-107) L 07/19/17 08:50 Carbon Dioxide 25 mmol/L (22-30) 07/19/17 08:50 Anion Gap 18 mmol/L 07/19/17 08:50 BUN 21 mg/dL (9-20) H 07/19/17 08:50 Creatinine 0.8 mg/dL (0.8-1.5) 07/19/17 08:50 Estimated GFR > 60 ml/min 07/19/17 08:50 BUN/Creatinine Ratio 26 % 07/19/17 08:50 Glucose 129 mg/dL (75-100) H 07/19/17 08:50 Lactic Acid 2.90 mmol/L (0.7-2.0) H* 07/19/17 08:50 Calcium 9.0 mg/dL (8.4-10.2) 07/19/17 08:50 Troponin T < 0.010 ng/mL (0.00-0.029) 07/19/17 13:07 Triglycerides 208 mg/dL (2-149) H 07/19/17 08:50 Cholesterol 196 mg/dL (50-199) 07/19/17 08:50 LDL Cholesterol Direct 132 mg/dL (50-130) H 07/19/17 08:50 HDL Cholesterol 51 mg/dL (40-59) 07/19/17 08:50 Cholesterol/HDL Ratio 3.84 % 07/19/17 08:50 - Imaging and Cardiology CT scan - abdomen: image reviewed (ileus) Assessment and Plan Assessment and plan: I saw and evaluated the patient. I agree with the findings and the plan of care as documented in the Nurse Practitioner's~note, with the following corrections and additions. sudden onset of diarrhea >x5 in 6 hours with concurrent chest pressure substernal non radiating, associated with diaphoresis. pain rated 5/10 in intensity. Now resolved. Had some left over food last night including pizza and pasta, eat same but no symptoms. Reports subjective fever. Checked lactate, elevated, possible SEPSIS FROM GI source. R/O CDIFF SPESIS PROTOCOL CARDS CONSULT. STRESS TEST PRIOR TO DISCHARGE. PLAN DISCUSSED IN DETAIL WITH PATIENT AND SPOUSE Advance Directives: Yes VTE prophylaxis?: Chemical
[2017-07-19] MEDS ORDERED: ZOFRAN IV PRN (13:30)
[2017-07-19] MEDS: NACL 0.9% 1000 ML 1,000 ML IV SCH (17:55)
[2017-07-20] MEDS: FLAGYL PO SCH ×2 (02:25→13:28)
[2017-07-20] MEDS: NACL 0.9% 1000 ML 1,000 ML IV SCH (05:45)
[2017-07-20 05:58] LABS: Hematocrit 45.4 % (35.5-45.6); Hemoglobin 15.7 gm/dl (11.8-15.2); Mean Corpuscular HGB Conc 35 % (32-34); Mean Corpuscular Hemoglobin 34 pg (28-32); Mean Corpuscular Volume 98 fl (84-94); Platelet Count 240 K/mm3 (140-440); Red Blood Count 4.62 M/mm3 (3.65-5.03); Red Cell Distribution Width 12.8 % (13.2-15.2); White Blood Count 10.5 K/mm3 (4.5-11.0)
[2017-07-20 06:24] LABS: Anion Gap 17 mmol/L; BUN/Creatinine Ratio 14; Blood Urea Nitrogen 11 mg/dL (9-20); Calcium 7.6 mg/dL (8.4-10.2); Carbon Dioxide 24 mmol/L (22-30); Chloride 105.5 mmol/L (98-107); Glucose 111 mg/dL (75-100); Potassium 3.3 mmol/L (3.6-5.0); Sodium 143 mmol/L (137-145)
[2017-07-20] MEDS ORDERED: LEXISCAN IV ONE ×2 (08:17→10:00)
[2017-07-20] MEDS ORDERED: K-DUR PO ONE (10:00)
--- NOTE | 2017-07-20 11:22 | Progress Note ---
Assessment and Plan Chest tightness/epigastric pain History of hiatal hernia Two sets of troponin are negative so far ECG on admission is showing no ischemic changes CT abdomen is showing distended loop of bowels and stomach - no obstruction MPI - small predominantly fixed apical inferior wall defect, low risk MPI Echo - hyperdynamic LV function Leukocytosis - resolving Diarrhea Polycythemia - improved Elevated lactic acid History of asthma on inhalers and monteleukast at home Systemic Hypertension on amlodipine Recommendations: No further cardiac work-up is needed Follow-up with [facility] as outpatient Continue asa, lipitor and amlodipine Management of diarrhea and lactic acidosis per primary team Subjective Date of service: 07/20/17 Principal diagnosis: Diarrhea, chest pain Interval history: Patient denies chest pain this morning He did experience further episodes of diarrhea yesterday Objective Vital Signs Temp Pulse Pulse Pulse Resp Resp BP 07/20/17 03:00 103 H 07/20/17 00:30 85 18 07/19/17 20:49 98.3 F 127 H 23 132/61 07/19/17 17:30 99.8 F H 116 H 20 147/93 07/19/17 16:50 07/19/17 16:48 119 H 20 07/19/17 16:37 122 H 20 07/19/17 14:13 98.9 F 109 H 20 173/96 07/19/17 12:15 113 H 20 07/19/17 12:10 109 H 18 Pulse Ox 07/20/17 03:00 07/20/17 00:30 96 07/19/17 20:49 91 07/19/17 17:30 94 07/19/17 16:50 96 07/19/17 16:48 07/19/17 16:37 07/19/17 14:13 94 07/19/17 12:15 07/19/17 12:10 - Physical Examination HEENT: Positive: PERRL Neck: Positive: neck supple Cardiac: Positive: Reg Rate and Rhythm Lungs: Positive: Normal Exam Neuro: Positive: Grossly Intact Abdomen: Positive: Soft Extremities: Present: normal - Labs and Meds Lipids 07/19/17 Range/Units 08:50 Triglycerides 208 H (2-149) mg/dL CBC 07/20/17 Range/Units 05:21 WBC 10.5 (4.5-11.0) K/mm3 RBC 4.62 (3.65-5.03) M/mm3 Hgb 15.7 H (11.8-15.2) gm/dl Hct 45.4 (35.5-45.6) % Plt Count 240 (140-440) K/mm3 Comprehensive Metabolic Panel 07/20/17 Range/Units 05:21 Sodium 143 (137-145) mmol/L Potassium 3.3 L (3.6-5.0) mmol/L Chloride 105.5 (98-107) mmol/L Carbon Dioxide 24 (22-30) mmol/L BUN 11 (9-20) mg/dL Creatinine 0.8 (0.8-1.5) mg/dL Glucose 111 H (75-100) mg/dL Calcium 7.6 L D (8.4-10.2) mg/dL
[2017-07-20] MEDS: ECOTRIN PO SCH (13:44)
[2017-07-20] MEDS ORDERED: K-DUR PO NR (14:00)
[2017-07-20] MEDS ORDERED: PROAIR IH PRN (17:25)
[2017-07-20] MEDS ORDERED: ATROVENT IH PRN (17:25)
--- NOTE | 2017-07-20 17:35 | Progress Note ---
Assessment and Plan Assessment and plan: Acute gastroenteritis/diarrhea - Patient is on Flagyl - C. difficile toxin is pending - Patient still continued to have diarrhea Chest pain - ECG, stress test, troponins are negative Hypertension - Continue medications DVT prophylaxis Disposition - Continue inpatient care - Possibly discharge tomorrow, if dizziness subsided History Interval history: Patient was seen and evaluated this morning, he is complaining of dizziness and diarrhea. Hospitalist Physical - Physical exam Narrative exam: Not in cardiopulmonary distress. The patient is obese. Vital signs as documented. Head exam is unremarkable. No scleral icterus . Neck is without jugular venous distension, thyromegaly, or carotid bruits. Lungs are clear to auscultation. Cardiac exam reveals regular rate and Rhythm. First and second heart sounds normal. No murmurs, rubs or gallops. Abdominal exam reveals normal bowel sounds, no masses, no organomegaly and no aortic enlargement. Extremities are nonedematous and both femoral and pedal pulses are normal. DISTRIBUTION SALES REPRESENTATIVE: Alert and oriented 3. No focal weakness. - Constitutional Vitals: Temp Pulse Resp BP Pulse Ox 98.3 F 110 H 18 155/90 96 07/19/17 20:49 07/20/17 10:30 07/20/17 00:30 07/20/17 10:30 07/20/17 00:30 General appearance: Present: no acute distress, well-nourished Results - Labs CBC & Chem 7: 07/20/17 05:21 07/20/17 05:21 Labs: Laboratory Last Values WBC 10.5 K/mm3 (4.5-11.0) 07/20/17 05:21 RBC 4.62 M/mm3 (3.65-5.03) 07/20/17 05:21 Hgb 15.7 gm/dl (11.8-15.2) H 07/20/17 05:21 Hct 45.4 % (35.5-45.6) 07/20/17 05:21 MCV 98 fl (84-94) H 07/20/17 05:21 MCH 34 pg (28-32) H 07/20/17 05:21 MCHC 35 % (32-34) H 07/20/17 05:21 RDW 12.8 % (13.2-15.2) L 07/20/17 05:21 Plt Count 240 K/mm3 (140-440) 07/20/17 05:21 Add Manual Diff Complete 07/19/17 08:50 Total Counted 100 07/19/17 08:50 Seg Neutrophils % Information Assurance Officer 07/19/17 08:50 Seg Neuts % (Manual) 93.0 % (40.0-70.0) H 07/19/17 08:50 Band Neutrophils % 0 % 07/19/17 08:50 Lymphocytes % (Manual) 3.0 % (13.4-35.0) L 07/19/17 08:50 Reactive Lymphs % (Man) 0 % 07/19/17 08:50 Monocytes % (Manual) 4.0 % (0.0-7.3) 07/19/17 08:50 Eosinophils % (Manual) 0 % (0.0-4.3) 07/19/17 08:50 Basophils % (Manual) 0 % (0.0-1.8) 07/19/17 08:50 Metamyelocytes % 0 % 07/19/17 08:50 Myelocytes % 0 % 07/19/17 08:50 Promyelocytes % 0 % 07/19/17 08:50 Blast Cells % 0 % 07/19/17 08:50 Nucleated RBC % Not Reportable 07/19/17 08:50 Seg Neutrophils # Man 15.6 K/mm3 (1.8-7.7) H 07/19/17 08:50 Band Neutrophils # 0.0 K/mm3 07/19/17 08:50 Lymphocytes # (Manual) 0.5 K/mm3 (1.2-5.4) L 07/19/17 08:50 Abs React Lymphs (Man) 0.0 K/mm3 07/19/17 08:50 Monocytes # (Manual) 0.7 K/mm3 (0.0-0.8) 07/19/17 08:50 Eosinophils # (Manual) 0.0 K/mm3 (0.0-0.4) 07/19/17 08:50 Basophils # (Manual) 0.0 K/mm3 (0.0-0.1) 07/19/17 08:50 Metamyelocytes # 0.0 K/mm3 07/19/17 08:50 Myelocytes # 0.0 K/mm3 07/19/17 08:50 Promyelocytes # 0.0 K/mm3 07/19/17 08:50 Blast Cells # 0.0 K/mm3 07/19/17 08:50 WBC Morphology Not Reportable 07/19/17 08:50 Hypersegmented Neuts Not Reportable 07/19/17 08:50 Hyposegmented Neuts Not Reportable 07/19/17 08:50 Hypogranular Neuts Not Reportable 07/19/17 08:50 Smudge Cells Not Reportable 07/19/17 08:50 Toxic Granulation Not Reportable 07/19/17 08:50 Toxic Vacuolation Not Reportable 07/19/17 08:50 Dohle Bodies Not Reportable 07/19/17 08:50 Pelger-Huet Anomaly Not Reportable 07/19/17 08:50 Radu Rods Not Reportable 07/19/17 08:50 Platelet Estimate Consistent w auto 07/19/17 08:50 Clumped Platelets Not Reportable 07/19/17 08:50 Plt Clumps, EDTA Not Reportable 07/19/17 08:50 Large Platelets Not Reportable 07/19/17 08:50 Giant Platelets Not Reportable 07/19/17 08:50 Platelet Satelliting Not Reportable 07/19/17 08:50 Plt Morphology Comment Not Reportable 07/19/17 08:50 RBC Morphology Not Reportable 07/19/17 08:50 Dimorphic RBCs Not Reportable 07/19/17 08:50 Polychromasia Not Reportable 07/19/17 08:50 Hypochromasia Not Reportable 07/19/17 08:50 Poikilocytosis Not Reportable 07/19/17 08:50 Anisocytosis 1+ 07/19/17 08:50 Microcytosis Not Reportable 07/19/17 08:50 Macrocytosis Not Reportable 07/19/17 08:50 Spherocytes Not Reportable 07/19/17 08:50 Pappenheimer Bodies Not Reportable 07/19/17 08:50 Sickle Cells Not Reportable 07/19/17 08:50 Target Cells Not Reportable 07/19/17 08:50 Tear Drop Cells Not Reportable 07/19/17 08:50 Ovalocytes Not Reportable 07/19/17 08:50 Helmet Cells Not Reportable 07/19/17 08:50 Childress-Dunnellon Bodies Not Reportable 07/19/17 08:50 Sherwood Rings Not Reportable 07/19/17 08:50 Xavier Cells Not Reportable 07/19/17 08:50 Bite Cells Not Reportable 07/19/17 08:50 Crenated Cell Not Reportable 07/19/17 08:50 Elliptocytes Not Reportable 07/19/17 08:50 Acanthocytes (Spur) Not Reportable 07/19/17 08:50 Rouleaux Not Reportable 07/19/17 08:50 Hemoglobin C Crystals Not Reportable 07/19/17 08:50 Schistocytes Not Reportable 07/19/17 08:50 Malaria parasites Not Reportable 07/19/17 08:50 Kushal Bodies Not Reportable 07/19/17 08:50 Hem Pathologist Commnt No 07/19/17 08:50 Sodium 143 mmol/L (137-145) 07/20/17 05:21 Potassium 3.3 mmol/L (3.6-5.0) L 07/20/17 05:21 Chloride 105.5 mmol/L (98-107) 07/20/17 05:21 Carbon Dioxide 24 mmol/L (22-30) 07/20/17 05:21 Anion Gap 17 mmol/L 07/20/17 05:21 BUN 11 mg/dL (9-20) 07/20/17 05:21 Creatinine 0.8 mg/dL (0.8-1.5) 07/20/17 05:21 Estimated GFR > 60 ml/min 07/20/17 05:21 BUN/Creatinine Ratio 14 % 07/20/17 05:21 Glucose 111 mg/dL (75-100) H 07/20/17 05:21 Lactic Acid 2.10 mmol/L (0.7-2.0) H* 07/19/17 13:07 Calcium 7.6 mg/dL (8.4-10.2) L D 07/20/17 05:21 Troponin T < 0.010 ng/mL (0.00-0.029) 07/19/17 13:07 Triglycerides 208 mg/dL (2-149) H 07/19/17 08:50 Cholesterol 196 mg/dL (50-199) 07/19/17 08:50 LDL Cholesterol Direct 132 mg/dL (50-130) H 07/19/17 08:50 HDL Cholesterol 51 mg/dL (40-59) 07/19/17 08:50 Cholesterol/HDL Ratio 3.84 % 07/19/17 08:50 Blood Type O NEGATIVE 07/19/17 08:54 Antibody Screen Negative 07/19/17 08:54
[2017-07-20] MEDS ORDERED: PROVENTIL IH PRN (17:54)
[2017-07-20] MEDS ORDERED: SINGULAIR PO SCH (18:00)
--- NOTE | 2017-07-20 22:39 | Treadmill Report ---
INDICATION: Chest pain. ORDERING PHYSICIAN: Dr. Dom Robledo FINDINGS: There is no scintigraphic evidence of myocardial ischemia. There is a small mild predominantly fixed defect noted in the apical inferior wall, comprising only 2% of the left ventricular myocardium. The left ventricular ejection fraction is normal measured at 63% with normal wall motion and wall thickening. CONCLUSION: 1. Low risk myocardial perfusion scan associated with 1-year cardiovascular mortality of less than 1%. 2. No scintigraphic evidence of myocardial ischemia. 3. Small mild fixed apical inferior wall defect. 4. Normal left ventricular size and systolic function. JOB# [id number] DONELL/NTS
[2017-07-21] MEDS: FLAGYL PO SCH ×2 (02:40→10:10)
[2017-07-21 05:55] LABS: Basophils % (Auto) 1.1 % (0.0-1.8); Eosinophils % (Auto) 4.9 % (0.0-4.3); Hematocrit 42.7 % (35.5-45.6); Mean Corpuscular HGB Conc 35 % (32-34); Mean Corpuscular Hemoglobin 35 pg (28-32); Mean Corpuscular Volume 98 fl (84-94); Platelet Count 210 K/mm3 (140-440); Red Blood Count 4.35 M/mm3 (3.65-5.03); Red Cell Distribution Width 12.8 % (13.2-15.2); White Blood Count 8.4 K/mm3 (4.5-11.0)
[2017-07-21 06:05] LABS: Anion Gap 16 mmol/L; BUN/Creatinine Ratio 14; Blood Urea Nitrogen 10 mg/dL (9-20); Calcium 7.9 mg/dL (8.4-10.2); Carbon Dioxide 24 mmol/L (22-30); Glucose 96 mg/dL (75-100); Potassium 3.7 mmol/L (3.6-5.0); Sodium 142 mmol/L (137-145)
[2017-07-21] MEDS ORDERED: NORVASC PO SCH (10:00)
[2017-07-21] MEDS ORDERED: NON-FORMULARY (Esomeprazole Magnesium [Nexium] 20 MG) PO SCH (10:00)
[2017-07-21] MEDS ORDERED: PROTONIX PO SCH (10:00)
[2017-07-21] MEDS: ECOTRIN PO SCH (10:11)
[2017-07-21 10:12] VITALS: BP 142/92
--- NOTE | 2017-07-21 10:45 | Progress Note ---
Assessment and Plan Chest tightness/epigastric pain History of hiatal hernia Two sets of troponin are negative so far ECG on admission is showing no ischemic changes CT abdomen is showing distended loop of bowels and stomach - no obstruction MPI - small predominantly fixed apical inferior wall defect, low risk MPI Echo - hyperdynamic LV function Leukocytosis - resolving Diarrhea Polycythemia - improved Elevated lactic acid History of asthma on inhalers and monteleukast at home Systemic Hypertension on amlodipine Recommendations: No further cardiac work-up is needed Follow-up with [facility] as outpatient Continue asa, lipitor and amlodipine Subjective Date of service: 07/21/17 Principal diagnosis: Diarrhea, chest pain Interval history: Patient is feeling well His chest and abdominal pain have subsided His diarrhea is also resolving He wants to go home Objective Vital Signs Temp Pulse Pulse Resp BP Pulse Ox 07/21/17 10:11 142/92 07/21/17 06:30 75 07/21/17 04:15 98.4 F 20 140/94 07/21/17 00:31 98.4 F 91 H 18 170/85 95 07/21/17 00:22 86 18 98 07/20/17 20:00 98.9 F 85 20 163/97 96 07/20/17 17:03 98.7 F 94 H 18 162/92 94 07/20/17 13:06 97.7 F 90 18 151/98 96 07/20/17 11:00 91 H - Physical Examination HEENT: Positive: PERRL Neck: Positive: neck supple Cardiac: Positive: Reg Rate and Rhythm Lungs: Positive: Normal Exam Neuro: Positive: Grossly Intact Abdomen: Positive: Soft Extremities: Present: normal - Labs and Meds CBC 07/21/17 Range/Units 05:14 WBC 8.4 (4.5-11.0) K/mm3 RBC 4.35 (3.65-5.03) M/mm3 Hgb 15.0 (11.8-15.2) gm/dl Hct 42.7 (35.5-45.6) % Plt Count 210 (140-440) K/mm3 Lymph # 2.5 (1.2-5.4) K/mm3 [place] # 1.1 H (0.0-0.8) K/mm3 Eos # 0.4 (0.0-0.4) K/mm3 Baso # 0.1 (0.0-0.1) K/mm3 Comprehensive Metabolic Panel 07/21/17 Range/Units 05:14 Sodium 142 (137-145) mmol/L Potassium 3.7 (3.6-5.0) mmol/L Chloride 106.0 (98-107) mmol/L Carbon Dioxide 24 (22-30) mmol/L BUN 10 (9-20) mg/dL Creatinine 0.7 L (0.8-1.5) mg/dL Glucose 96 (75-100) mg/dL Calcium 7.9 L (8.4-10.2) mg/dL
--- NOTE | 2017-07-21 11:04 | Query-Infection ---
Dear Dereje Date:___07/21/17 Chlorine Plant Operator/CDS:____Chan Phone#:__[phone] Exercise your independent professional judgment when responding to this query. Questions asked do not imply a particular answer is desired or expected. We greatly appreciate your clarification on this issue. Clinical Documentation States: 67 year old male was admitted on 07/19/17 The H&P (Dr. Robledo) states " Had some left over food last night including pizza and pasta, eat same but no symptoms. Reports subjective fever. Checked lactate, elevated, possible SEPSIS FROM GI source. " The progress note (Dr. Reyez 07/20/17) states " Assessment and plan: Acute gastroenteritis/diarrhea - Patient is on Flagyl - C. difficile toxin is pending - Patient still continued to have diarrhea " Pulse rate: 108 Respiratory rate: 23 WBC: 17 Clinical findings show: (please check applicable parameters) Infection, known /suspected, with some of the following indicators; Specify the infection: 3 General parameters [ ] Fever (core temp >38.30C or 100.40F) [ ] Hypothermia (core temp <36C) [ x] Heart rate >90 bpm [x ] Tachypnea: >20 bpm or pCO2 < 32 mmHg [ ] Altered mental status [ ] Significant edema / +ve fluid balance (>20 ml/kg 24 h) [ ] Hyperglycemia (Bl. glucose >110 mg/dl) w/o diabetes Inflammatory parameters [ x] Leukocytosis (white blood cell count >12,000/l) [ ] Leukopenia (white blood cell count <4,000/l) [ ] Bandemia (immature WBC > 10%) [ ] Leucocyte Left Shift [ ] Plasma procalcitonin>2 SD above the normal value Hemodynamic and tissue perfusion parameters [ ] Arterial hypotension(SBP <90 mmHg, MAP <70 mmHg,or a SBP drop >40 mmHg in adults) [ ] Hyperlactatemia (>3 mmol/l) [ ] Anion Gap (> 11mEG/l) [ ] Decreased capillary refill or mottling Organ dysfunction parameters [ ] Arterial hypoxemia (PaO2/FIO2 <300) [ ] Creatinine increase =0.5 mg/dl [ ] Acute oliguria (urine output <0.5 ml | kg |h or 45 mM/l for at least 2 hrs) [ ] Coagulation abnormalities (INR >1.5 or activated partial thromboplastin time >60 s) [ ] Ileus (absent meghna wel sounds) [ ] Thrombocytopenia (platelet count <100,000/l) [ ] Hyperbilirubinemia (plasma total bilirubin >4 mg/dl) According to the clinical indications above, can Bacteremia be further specified? If so, please indicate below and in your Progress Notes and/ or Discharge Summary. Indicate if the condition was present on admission. PHYSICIAN RESPONSE: [x] Sepsis [ ] Severe Sepsis [ ] Septic Shock [ ] Septicemia [ ] Sepsis now resolved [ ] SIRS due to non-infectious cause with organ dysfunction [ ] SIRS due to non-infectious cause without organ dysfunction [ ] Other: [ ] Comment/Explanation: Present on Admission: [ x] Yes (Y) [ ] Clinically undeterminable (W) [ ] No (N) [ ] Ruled Out Please also document response in your Progress Notes and/or Discharge Summary and indicate if the condition was present on admission Notes: SIRS/ SIRS WITH ORGAN DYSFUNCTION Systemic inflammatory response syndrome (SIRS) generally refers to the systemic response to trauma/king or other insult such as Acute Myocardial Infarction, Acute Pancreatitis, and Major Surgery with symptoms including fever, tachycardia , tachypnea, and leukocytosis (1). BACTEREMIA Presence of viable bacteria in the circulating blood (2). This term is reserved for patients that do not manifest above SIRS response. SEPTICEMIA Generally refers to a systemic disease associated with the presence of pathological microorganisms or toxins in the blood, which can include bacteria, viruses, fungi or other organisms (1). SEPSIS Generally refers to SIRS due infection (1). SEVERE SEPSIS Generally refers to sepsis associated with acute organ dysfunction (1). SEPTIC SHOCK Generally refers to circulatory failure associated with severe sepsis (2), and defined as hypotension or hypoperfusion despite adequate fluid resuscitation (1 hour) (3). REFERENCES: 1. [employer]/Society of Critical Care Medicine Consensus Conference. Definitions for sepsis and organ failure and guidelines for the use of innovative therapies in sepsis. Critical Care Med 1992;20:864 - 74. 2. Kevin y MM, Tereso MP, Mustapha KELLIE, Alexys E, Willie D, Cash D, Oswaldo J, Lesly SM , Ramirez JL, Patti G; International Sepsis Definitions Conference. 2001 SCCM/ESICM/ACCP/ATS/SIS International Sepsis Definitions Conference. Intensive Care Med. 2002 Apr;29(4):530-8. Epub 2002Oct 29. Review. PubMed PMID:[id number] 3. ICD-9-CM Official Guidelines for Coding and Reporting 4. Medscape Drugs, Diseases and Procedures references 5. [employer] Textbook of Internal Medicine. 18th Edition MTDD
--- NOTE | 2017-07-21 11:08 | Query- Chest Pain ---
Sparkle Azul____Dereje Date:___07/21/17 Optical Instrument Assembly Supervisor/CDS: Rohit Phone#:___[phone] Exercise your independent professional judgment when responding to query. Questions asked do not imply a particular answer is desired or expected. We greatly appreciate your clarification on this issue. Clinical Documentation States: 67 year old male was admitted on 07/19/17 The Progress note (Dr. Reyez 07/20/17) states " Chest pain - ECG, stress test, troponins are negative " The cardiology progress note ( Dr. Shah 07/21/17) states " Chest tightness/ epigastric pain History of hiatal hernia Two sets of troponin are negative so far ECG on admission is showing no ischemic changes CT abdomen is showing distended loop of bowels and stomach - no obstruction MPI - small predominantly fixed apical inferior wall defect, low risk MPI Echo - hyperdynamic LV function " Please document the etiology of Chest Pain: [ ] Myocardial Infarction [ ] Pneumonia [ ] Mediastinitis [ x] Costochondritis [ ] Pulmonary Embolism [ ] Coronary Artery Disease [ ] GERD [ ] Other: [ ] Comment/Explanation: Present on Admission: [x ] Yes (Y) [ ] Clinically undeterminable (W) [ ] No(N) Please document response in your Progress Notes and/or Discharge Summary and indicate if the condition was present on admission. IDALIA
--- NOTE | 2017-07-21 13:10 | Discharge Summary ---
Providers - Providers Date of Admission: 07/19/17 09:40 Date of discharge: 07/21/17 Attending physician: MELISSA LANCASTER MD 07/19/17 Consult to Cardiac Rehabilitation [CONS] Routine Reason For Exam: Phase I 07/19/17 08:32 Consult to Cardiology [CONS] Routine Consulting Provider: DREA LEWIS Reason For Exam: chest pain Primary care physician: ADULT FAMILY HOME PROGRAM MANAGER Hospitalization Reason for admission: Acute gastroenteritis, chest pain Condition: Stable Pertinent studies: Abdomen/pelvis CT The stomach is slightly distended with fluid. There slightly distended loops of small bowel. There is no specific evidence of obstruction or enteritis. There are diverticula of the colon. There is no diverticulitis or colitis. There is no ascites, free air, abscess or adenopathy. Lexiscan stress test - No scintigraphic evidence of myocardial ischemia - Small mild fixed apical inferior wall defect Echo - EF 70-75% - Abnormal left ventricular diastolic filling is observed. Hospital course: Patient is a 67 year old male with history of Hypertension, Asthma and S/P Cholecystectomy who presents to the ER with complaints of Nausea, diarrhea and subsequent chest pain/pressure. Patient stated that symptoms began about 1 am, a few hours after having left overs for dinner. Patient describe that midsternal chest pressure began after having a few episodes of diarrhea. Patient stated the stools was watery in consistency with no blood or any other abnormalities. Patient stated that prior to last night, condition was benign and no acute illnesses. Patient was admitted to the floor was treated with IV antibiotics, IV fluids, made him nothing by mouth. Patient showed improvement, CT abdomen and pelvis, echo, stress test was done and the results are stated above. Patient has some dizziness he was given IV fluids and subsequently the dizziness subsided. Patient discharged with by mouth Flagyl. Patient was hemodynamically stable at the time of discharge. Appropriate medications were refilled. Patient is advised to follow-up with his PCP, for his hyperplasia and diastolic dysfunction. Disposition: -01 TO HOME OR SELFCARE Time spent for discharge: 31 minutes - Discharge Diagnoses (1) Chest pain Status: Acute Qualifiers: Chest pain type: precordial pain Qualified Code(s): R07.2 - Precordial pain (2) Epigastric abdominal pain Status: Acute (3) Sepsis Status: Acute Core Measure Documentation - Palliative Care Palliative Care/ Comfort Measures: Not Applicable - Core Measures Any of the following diagnoses?: none Exam - Physical Exam Narrative exam: Not in cardiopulmonary distress. The patient is obese. Vital signs as documented. Head exam is unremarkable. No scleral icterus . Neck is without jugular venous distension, thyromegaly, or carotid bruits. Lungs are clear to auscultation. Cardiac exam reveals regular rate and Rhythm. First and second heart sounds normal. No murmurs, rubs or gallops. Abdominal exam reveals normal bowel sounds, no masses, no organomegaly and no aortic enlargement. Extremities are nonedematous and both femoral and pedal pulses are normal. DISTANCE LEARNING ADMINISTRATOR: Alert and oriented 3. No focal weakness. - Constitutional Vitals: Temp Pulse Resp BP Pulse Ox 97.7 F 75 18 142/92 95 07/21/17 08:42 07/21/17 06:30 07/21/17 08:42 07/21/17 10:11 07/21/17 00:31 Plan Activity: no restrictions Weight Bearing Status: Full Weight Bearing Diet: low fat, low cholesterol, low salt Additional Instructions: Please follow with your PCP in 2weeks. Patient said he has PCP. Follow up with: PRIMARY CARE, [Primary Care Provider] - 3-5 Days Prescriptions: Aspirin [Adult Low Dose Aspirin EC] 81 mg PO DAILY #30 tablet. metroNIDAZOLE [Flagyl TAB] 500 mg PO Q8H #14 tablet
== END 2017-07-21 13:50 | disposition home or self-care (01) | DRG 872 ==
LOC: ED 06:14 → 4A 09:40
PROVIDERS: ADMIT Internal Medicine; ATTEND Internal Medicine
DX: A41.9 Sepsis, unspecified organism (principal); M94.0 Chondrocostal junction syndrome [Tietze]; K52.9 Noninfective gastroenteritis and colitis, unspecified; J45.909 Unspecified asthma, uncomplicated; D75.1 Secondary polycythemia; I10 Essential (primary) hypertension; Z82.49 Family history of ischemic heart disease and other diseases of the circulatory system; Z88.1 Allergy status to other antibiotic agents; Z79.899 Other long term (current) drug therapy; Z90.49 Acquired absence of other specified parts of digestive tract; Z72.89 Other problems related to lifestyle; Z80.8 Family history of malignant neoplasm of other organs or systems
CPT/HCPCS: 36415; 71020; 74177; 78452; 80048; 80061; 82140; 84484; 85007; 85025; 85027; 86850; 86900; 86901; 87045; 93005; 93010; 93017; 93306; 94640; 96374; 96375; A9270-GY; A9502; J2405; J2785; J3010; J7030; J7040; Q9967